=== PATIENT | female | born 1965 | race Caucasian/White ===

== ENCOUNTER 2017-09-20 09:56 | Day surgery (SDC) | payer BC ==
[2017-09-20] MEDS ORDERED: PROPOFOL 200 MG/20 ML VIAL As Ordered (10:41)
[2017-09-20] MEDS ORDERED: LIDOCAINE 2% INJ 100 MG/5 ML SDV (FOR ANES.) As Ordered (10:41)
[2017-09-20] MEDS ORDERED: NS 1,000 ML IV (10:45)
== END 2017-09-20 11:36 | disposition home or self-care (01) ==
LOC: M OPP 09:56
DX: Z12.11 Encounter for screening for malignant neoplasm of colon (principal); Z85.3 Personal history of malignant neoplasm of breast; Z92.3 Personal history of irradiation
CPT/HCPCS: G0121

== ENCOUNTER → 2018-06-08 | Outpatient (CLI) | payer BC ==
--- NOTE | 2018-06-10 08:02 | ECHO ---
DATE OF PROCEDURE: 06/08/2018 DATE OF : 1965 AGE: 52 REFERRING PROVIDER: Clarissa London PATIENT LOCATION: Outpatient REASON FOR ECHOCARDIOGRAM: Heart murmur. 2D MEASUREMENTS: IVS: 0.93 cm LV: 4.3 cm LVPW: 1.1 cm LA: 3.1 cm Aorta: 2.9 cm IVC: 2.5 cm DOPPLER MEASUREMENTS: Peak velocity across the aortic valve: 1.2 m/s Peak velocity across the LVOT: 0.88 m/s Mitral E: 0.61 Mitral A: 0.57 Ratio: 1.1 2D COMMENTS: 1. Normal left ventricular size, wall thickness and normal global left ventricular systolic function. The estimated left ventricular systolic ejection fraction is 60-65%. 2. Normal left atrium. The right atrium appeared to be mildly enlarged. Normal right ventricle. 3. The atrial septum appeared to be normal without evidence of defect or shunt. 4. Normal aortic root. 5. Trace pericardial effusion noted, no evidence of cardiac tamponade. 6. The aortic valve, mitral valve, tricuspid valve appeared to be normal. The pulmonic valve and proximal pulmonary artery branches were not well visualized. 7. The inferior vena cava was mildly enlarged, central venous pressure might be elevated. DOPPLER: It detects mild mitral regurgitation and probably moderate tricuspid regurgitation. Tricuspid valve velocity was not quite well detected. Could not assess accurately pulmonary artery systolic pressure. Assessment of the left ventricular diastolic function appeared to be normal. IMPRESSION: 1. Normal global left ventricular systolic function. Assessment of the left ventricular diastolic function appeared to be normal. 2. Mild mitral regurgitation. 3. Probably moderate tricuspid regurgitation. The right atrium is mildly enlarged. Pulmonary artery systolic pressure could not be accurately assessed. 4. Trace pericardial effusion, no evidence of cardiac tamponade.
== END ==
LOC: M CARPUL 09:23
PROVIDERS: ATTEND Nurse Practitioner Family
DX: R01.1 Cardiac murmur, unspecified (principal); R00.1 Bradycardia, unspecified; I51.7 Cardiomegaly; I31.3 Pericardial effusion (noninflammatory)

== ENCOUNTER 2022-08-27 09:16 | Day surgery (SDC) | payer OTHER ==
[~2022-08-27] VITALS: Ht 154.9 cm; Wt 50.8 kg
[~2022-08-27 09:16] MED LIST: NS 1,000 ML IV ONE
[2022-08-27] MEDS ORDERED: propofoL 200 MG/20 ML VIAL As Ordered ONE ×2 (11:17→11:32)
[2022-08-27] MEDS ORDERED: fentaNYL 100 MCG/2 ML INJECTION As Ordered ONE (11:18)
[2022-08-27] MEDS ORDERED: GLYCOPYRROLATE INJ 0.2 MG/ML 2 ML VIAL As Ordered ONE (11:22)
[2022-08-27 12:01] VITALS: TEMP 97.9
[2022-08-27 12:18] VITALS: BP 109/70; O2SAT 97
== END 2022-08-27 12:30 | disposition home or self-care (01) ==
LOC: M OPP 09:16
PROVIDERS: ATTEND Internal Medicine Gastroenterology
DX: Z12.11 Encounter for screening for malignant neoplasm of colon (principal); D12.5 Benign neoplasm of sigmoid colon; R97.0 Elevated carcinoembryonic antigen [CEA]
CPT/HCPCS: 43235; 45385; 88305; J3010